=== PATIENT | female | born 1995 | race Caucasian/White ===

== ENCOUNTER 2018-03-07 12:50 | Emergency (ER) | payer OTHER ==
[~2018-03-07] VITALS: Ht 175.3 cm; Wt 57.8 kg
[2018-03-07 14:53] VITALS: BP 178/81
== END 2018-03-07 14:53 | disposition home or self-care (01) ==
LOC: EME 12:50
DX: H10.9 Unspecified conjunctivitis (principal); J45.909 Unspecified asthma, uncomplicated
CPT/HCPCS: 99281; 99284